=== PATIENT | female | born 1950 | race Caucasian/White ===

== ENCOUNTER 2016-08-22 19:33 | Emergency (ER) | payer OTHER ==
[~2016-08-22 19:33] MED LIST: ACID REDUCER150 MG PO; CLARITIN EYE OP; CRESTOR20 MG PO; DEPAKENE250 MG PO; DIAZEPAM5 MG PO; ESTRACE PV; FLONASE AL50 MCG/ACT IN; GUAIFENESIN AC PO; HYDROCODONE-APAP PO; KEPPRA500 MG PO; LISINOPRIL10 MG PO; LOPERAMIDE HCL2 MG PO; MORPHINE SULFAT15 M1 PO; NORVASC5 MG PO; ONDANSETRON ODT4 MG PO; PLAVIX75 MG PO; REGLAN10 MG PO; SEROQUEL25 MG PO; SIMVASTATIN20 MG PO; THEOPHYLLINE E300 MG PO; TRAZODONE HCL50 MG PO; VICODIN HP1 TA1 PO; ZOLOFT50 MG PO
--- NOTE | 2016-08-22 22:59 | DIAGNOSTIC IMAGING REPORT ---
PROCEDURE: CT ABDOMEN/PELVIS W/O CONTRAST INDICATION: ABDOMINAL PAIN TECHNIQUE: Axial CT images were obtained through the abdomen and pelvis without IV contrast. Coronal and sagittal reformations were created. The patient has an allergy to IV contrast. COMPARISON: None. FINDINGS: Emphysematous changes at the lung bases. Surgical clips in the expected location of the hepatic caudate lobe. Gallbladder surgically absent. Unenhanced appearance of adrenal glands, pancreas, spleen, and kidneys is normal. Focally ectatic mid abdominal aorta with peripheral calcification. There are no suspicious calcifications, retroperitoneal adenopathy or masses. The stomach, upper bowel loops, and mesentery appears normal. Intact anterior abdominal wall. No free fluid, or inflammation. The unenhanced appearance of the uterus, urinary bladder, pelvic vessels, and pelvic bowel loops is normal. Appendix not visible but no right lower quadrant inflammation. No suspicious calcifications, free fluid, or mass. Intact osseous structures with severe degenerative disc height loss and L5-S1. IMPRESSION: 1. No acute process. 2. Post cholecystectomy and focal hepatectomy. 3. Nonvisualization of the appendix but no adjacent inflammatory changes. 4. Discussed with Dr. Galicia in the emergency room. All CT scans at this facility use dose modulation, iterative reconstruction, and/or weight-based dosing when appropriate to reduce radiation dose to as low as reasonably achievable.
--- NOTE | 2016-08-22 23:05 | ED ORDER SUMMARY ---
..... Patient: RAVEN RBOLEDO OrderSheet [facility] VisitID: [id number] [place] [address] 66y, F Registration Date/Time: 08/22/2016 ORDER SHEET Weight: 45.3 kg (stated) Allergies: Acular, Aspirin, Bee stings, Citalopram, CONTRAST DYE, Darvon, Flexeril, Latex, Lipitor, Nicotine patch , Penicillins GENERAL ORDERS: CBC w Diff Urgent (19:40 08/22/2016 Kendy KINNEY) (Ack 19:46 AMcQuoid ER Tech1) (19:59 Jorgito R.N.) CMP Urgent (19:40 08/22/2016 Kendy KINNEY) (Ack 19:46 AMcQuoid ER Tech1) (19:59 Jorgito R.N.) UA-Culture if indicated Urgent (19:40 08/22/2016 Kendy KINNEY) (Ack 19:46 AMcQuoid ER Tech1) (20:15 Jorgito R.N.) Amylase Urgent (19:40 08/22/2016 Kendy KINNEY) (Ack 19:46 AMcQuoid ER Tech1) (19:59 Jorgito R.N.) Lipase Urgent (19:40 08/22/2016 Kendy KINNEY) (Ack 19:46 AMcQuoid ER Tech1) (19:59 Jorgito R.N.) Urine Drug Screen Urgent (19:40 08/22/2016 Kendy KINNEY) (Ack 19:46 AMcQuoid ER Tech1) (20:15 Jorgito R.N.) CT Abd/Pel wo Cont Urgent (20:55 08/22/2016 Kendy KINNEY) (Ack 21:02 AMcQuoid ER Tech1) (21:06 Jorgito R.N.) MEDICATION ORDERS: Phenergan IV 25 mg (HIGH ALERT MEDICATION, NOW) (22:18 08/22/2016 Adriana KINNEY) (Ack 22:20 Jorgito R.N.) (22:49 Jorgito R.N.) Bactrim DS PO (Tablet 800-160 mg) 1 tab (NOW) (23:02 08/22/2016 Adriana KINNEY) (Ack 23:07 HSoule) (23:38 HSoule) Metoprolol PO 25 mg (HIGH ALERT MEDICATION, NOW) (23:29 08/22/2016 Adriana KINNEY) (Ack 23:33 CBradalexi R.N.) (23:35 CBradburn R.N.) IV FLUIDS: IV NS : initial bolus 1000 mL (1000 mL/hr), then 150 mL/hr for 4h (NOW); Urgent (19:39 08/22/2016 Kendy KINNEY) (Ack 19:51 HSoule) (19:51 HSoule) Dilaudid IV 1 mg (HIGH ALERT MEDICATION, NOW) (22:12 08/22/2016 Adriana KINNEY) (Ack 22:19 CBradburn R.N.) (22:48 CBradburn R.N.) Zofran IV 8 mg (NOW) (22:12 08/22/2016 Adriana KINNEY) (Cancelled: Other22:18 Adriana KINNEY) Toradol IV 30 mg (NOW) (22:19 08/22/2016 Adriana KINNEY) (Ack 22:20 CBradburn R.N.) (22:49 CBradburn R.N.) ORDER SHEET NOTES: [Electronically signed by Marita uDnn (00:17 08/23/2016)] [Electronically signed by Aniyah Galicia MD (14:14 08/27/2016)] [Electronically locked/signed by Marita Dunn (00:17 08/23/2016)]
--- NOTE | 2016-08-22 23:05 | ED ORDER SUMMARY ---
..... Patient: RAVEN ROBLEDO OrderSheet [facility] VisitID: [id number] [place] [address] 66y, F Registration Date/Time: 08/22/2016 ORDER SHEET Weight: 45.3 kg (stated) Allergies: Acular, Aspirin, Bee stings, Citalopram, CONTRAST DYE, Darvon, Flexeril, Latex, Lipitor, Nicotine patch , Penicillins GENERAL ORDERS: CBC w Diff Urgent (19:40 08/22/2016 Kendy KINNEY) (Ack 19:46 AMcQuoid ER Tech1) (19:59 Jorgito R.N.) CMP Urgent (19:40 08/22/2016 Kendy KINNEY) (Ack 19:46 AMcQuoid ER Tech1) (19:59 Jorgito R.N.) UA-Culture if indicated Urgent (19:40 08/22/2016 Kendy KINNEY) (Ack 19:46 AMcQuoid ER Tech1) (20:15 Jorgito R.N.) Amylase Urgent (19:40 08/22/2016 Kendy KINNEY) (Ack 19:46 AMcQuoid ER Tech1) (19:59 Jorgito R.N.) Lipase Urgent (19:40 08/22/2016 Kendy KINNEY) (Ack 19:46 AMcQuoid ER Tech1) (19:59 Jorgito R.N.) Urine Drug Screen Urgent (19:40 08/22/2016 Kendy KINNEY) (Ack 19:46 AMcQuoid ER Tech1) (20:15 Jorgito R.N.) CT Abd/Pel wo Cont Urgent (20:55 08/22/2016 Kendy KINNEY) (Ack 21:02 AMcQuoid ER Tech1) (21:06 Jorgito R.N.) MEDICATION ORDERS: Phenergan IV 25 mg (HIGH ALERT MEDICATION, NOW) (22:18 08/22/2016 Adriana KINNEY) (Ack 22:20 Jorgito R.N.) (22:49 Jorgito R.N.) Bactrim DS PO (Tablet 800-160 mg) 1 tab (NOW) (23:02 08/22/2016 Adriana KINNEY) (Ack 23:07 HSoule) (23:38 HSoule) Metoprolol PO 25 mg (HIGH ALERT MEDICATION, NOW) (23:29 08/22/2016 Adriana KINNEY) (Ack 23:33 CBradalexi R.N.) (23:35 CBradburn R.N.) IV FLUIDS: IV NS : initial bolus 1000 mL (1000 mL/hr), then 150 mL/hr for 4h (NOW); Urgent (19:39 08/22/2016 Kendy KINNEY) (Ack 19:51 HSoule) (19:51 HSoule) Dilaudid IV 1 mg (HIGH ALERT MEDICATION, NOW) (22:12 08/22/2016 Adriana KINNEY) (Ack 22:19 CBradburn R.N.) (22:48 CBradburn R.N.) Zofran IV 8 mg (NOW) (22:12 08/22/2016 Adriana KINNEY) (Cancelled: Other22:18 Adriana KINNEY) Toradol IV 30 mg (NOW) (22:19 08/22/2016 Adriana KINNEY) (Ack 22:20 CBradburn R.N.) (22:49 CBradburn R.N.) ORDER SHEET NOTES: [Electronically signed by Marita Dunn (00:17 08/23/2016)] [Electronically signed by Aniyah Galicia MD (14:14 08/27/2016)] [Electronically locked/signed by Marita Dunn (00:17 08/23/2016)]
--- NOTE | 2016-08-22 23:05 | ED NURSING NOTES ---
Clinical Report - Nurses [facility] [address] [place] [address] 08/22/2016 19:34 [id number] Triage time 19:36 Aug 22 2016. Acuity: LEVEL 3. Chief Complaint: ABDOMINAL PAIN, NAUSEA, VOMITING and DIARRHEA. SEPSIS SCREEN: Sepsis Screen: negative. Negative (no infection suspected/documented). JAMES COMA SCORE: Brandon Coma Scale: 15- eyes open spontaneously (4); best verbal response- oriented x 4 (5); best motor response- obeys commands (6). --19:47 Marita Dunn 19:36 08/22/16. BP: 219/99. HR: 82. RR: 18. O2 saturation: 100% on room air. Temp: 97.8 F (oral). Pain level now: 01/08. --19:47 Marita Dunn. Weight: 45.3 kg stated. Height/Length: 63 inches Per Patient. BMI: 17.7. --19:43 Marita Dunn. Medications Clopidogrel Bisulfate Oral (Tablet 75 mg) 1 tablet, daily. Hydrocodone-Acetaminophen Oral 10 mg, as needed. Loperamide HCl Oral, as needed. Morphine Sulfate (Concentrate) Oral 15 mg, 2 x daily. SEROquel Oral 25 mg, at bedtime. Theophylline ER Oral (Tablet Extended Release 12 Hour 300 mg) 1/2 tablet, twice daily. TraZODone HCl Oral 50 mg, at bedtime. Zoloft Oral 50 mg, daily. --19:42 Marita Dunn LevETIRAcetam Oral. --19:43 Marita Dunn Advair HFA Inhalation. --19:43 Marita Dunn Simvastatin Oral. --19:43 Marita Dunn Diazepam Oral 5 mg, 3x a day. --19:46 Marita Dunn Estrace Vaginal. --19:46 Marita Dunn. Medication/allergy information source: the patient. --19:47 Marita Dunn. Allergies Acular. Aspirin. Definite Severe(swelling) Bee stings. Citalopram. CONTRAST DYE. Darvon. Flexeril. Latex. Lipitor. Nicotine patch . Penicillins. Definite Severe(swelling) --19:45 Marita Dunn. History Arrived by EMS. Historian: EMS and patient. Unaccompanied. Primary physician (falguni polanco). Onset. (2 days). ( Patient reports that she has extensive stomach problems. She states two days of nausea, vomiting and diarrhea. She believed she had a bug. She states then today she threw up pills she had taken six hours later. She states her "stomach has shut down". Patient reports 10/10 abdominal pain.). Last oral intake by patient was (Patient reports gatorade today but no food). 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 See EMS report. EMS treatment WELDING MACHINE OPERATOR ELECTRON BEAM verbally communicated and report reviewed. See report. Pre-hospital 12-lead EKG. MORPHINE 2 mg IVP given by EMS. BP: 225 / 105. HR: 80. O2 saturation: 98 % room air. PAST MEDICAL HX: Immunizations: status is unknown. The patient is post-menopausal. SOCIAL HX: Heavy tobacco smoker (cigarette)- 1 pack per day. History of drug use: marijuana. No alcohol use. No recent travel. No infectious disease exposure. No known contact with a sick individual. ABUSE ASSESSMENT: No report of abuse. FALL RISK ASSESSMENT: Fall risk assessment completed. No fall risk identified. NUTRITIONAL RISK ASSESSMENT: The nutritional risk assessment revealed no deficiencies. FUNCTIONAL ASSESSMENT: Functional assessment: no impairments noted. LEARNING NEEDS ASSESSMENT: The learning needs assessment revealed no barriers. SKIN INTEGRITY ASSESSMENT: Skin integrity risk assessment completed. No skin integrity risk identified. --19:47 Marita Dunn. PROBLEMS: Hypokalemia. Seizure. Cervical Radiculopathy. Hypomagnesemia. Palpitations. Vomiting. Hypertension. Diarrhea. Nausea. Abdominal Pain. L5 S1 ruptured. Herniated Disk. COPD - Chronic Obstructive Pulmonary Disease. Liver problems in 2004. --19:46 Marita Dunn. ADDITIONAL SURGERIES: Appendectomy. Cholecystectomy. Liver cyst removal. Shoulder Surgery. --19:46 Marita Dunn. Interventions ID band on patient. To treatment room. --19:47 Marita Dunn. 19:37 08/22/2016 Site #1 started prior to arrival by EMS via IV in the left antecubital space with an 20g angiocath, with aseptic technique and good blood return; one attempt. Blood drawn: rainbow set. Labeled in the presence of the patient and sent to the lab. Saline lock flushed with 10 mL saline. --19:37 Marita Dunn. PHYSICAL ASSESSMENT To room via stretcher. Patient gowned. GENERAL / NEURO / PSYCH: Alert. Oriented X 4. Appears in pain. HEENT: Mucous membranes are pink. RESPIRATORY: Respirations not labored. CVS: Normal sinus rhythm noted. GI / : Emesis noted. Has vomited once. Abdomen soft and nontender. Abdominal tenderness in the periumbilical area. SKIN: Skin is warm and dry. --19:48 Marita Dunn. NURSING PROGRESS NOTES slot router, pulse oximeter and NIBP monitor placed on patient; monitor alarms on. Patient gowned. Warming measures: blanket applied. Reassurance given to the patient. Two patient identifiers checked. Call light placed in reach. Side rails up x 1. Bed placed in lowest position. Brakes of bed on. Patient ready for evaluation- chart flagged and ED physician notified. --19:49 Marita Dnun ( Patient states, "where is the doctor, when will they come in?". Patient reassured that provider will come to bedside as soon as possible.). --19:50 Marita Dunn Patient ID band checked for patient name and birthdate: patient confirmed. Blood samples drawn from the left antecubital space peripheral IV site with Vacutainer by nurse ; labeled in presence of the patient and sent to lab: rainbow set. Initial blood discarded and additional blood sent to lab. Line flushed with 10 mL normal saline post blood draw. --19:50 aMrita Dunn 19:51 08/22/2016 Started bag #1 1000 mL IV Fluids IV NS (Saline); at 1000 mL/hr over 1 hour(s) via site #1. Allergies verified and confirmed 5 rights. IV patency established. IV site checked: no pain, redness, or swelling. IV flushed thoroughly pre- and post-medication administration (Started in route to hospital, 200 ml infused at time of arrival.). --19:51 Shaun Marita Patient ID band checked for patient name: patient confirmed. Instructions provided to collect clean catch urine and patient verbalized understanding urine collected with return of yellow-colored clear urine; sample sent to lab for urinalysis and drug screen. Specimen labeled in the presence of the patient. ( pt up to BSC, urine collected and pt back to bed. placed back on monitor, will continue to monitor). --20:16 Naz Perales R.N. 20:21 Patient given ice bag for abdomen and warm blanket per request. Male orthopedic shoe fitter at bedside. --20:22 McQuoid, Kyleigh, ER Tech1 The patient is calm and resting quietly. Overall patient status is improved. GI / : The patient reports abdominal pain is still present and currently moderate in severity. Abdomen soft. Bowel sounds within normal limits. --20:40 Naz Perales R.N. 20:30 08/22/16. BP: 197/84 taken on the right arm, while lying. HR: 74 (regular and normal rate). RR: 18 (regular and unlabored). O2 saturation: 97% on room air. Temp: deferred. Pain level now: 09/08. --20:40 Naz Perales R.N. Patient transported to [place] by stretcher with tech. --21:06 Marita Dunn 21:06 08/22/2016 IV Fluids IV NS Discontinued: bag #1 completed. Total amount infused: 1000 mL. IV patency established. IV site checked: no pain, redness, or swelling. IV flushed thoroughly. --21:06 Naz Perales R.N. Patient transported to [place] by stretcher with tech. --21:06 Naz Perales R.N. 22:41 08/22/16. O2 saturation: 90% on nasal cannula at 2 liters/minute. Additional comments: 88%, 2 L NC applied, Primary nurse notified. . --22:42 Marita Dunn 22:25 08/22/2016 Toradol IVP 30 mg given over 2 minute(s) via site #1. Allergies verified and confirmed 5 rights. IV patency established. IV site checked: no pain, redness, or swelling. IV flushed thoroughly pre- and post-medication administration. IVP given by RN. --22:49 Naz Perales R.N. 22:30 08/22/2016 PHENERGAN (Promethazine HCl) IVP 25 mg given over 2 minute(s) via site #1. Allergies verified and confirmed 5 rights. IV patency established. IV site checked: no pain, redness, or swelling. IV flushed thoroughly pre- and post-medication administration. IVP given by RN. --22:49 Naz Perales R.N. 22:33 08/22/2016 Dilaudid (HYDROmorphone HCl PF) IVP 1 mg given over 2 minute(s) via site #1. Allergies verified, confirmed 5 rights and sedative warning given to the patient. IV patency established. IV site checked: no pain, redness, or swelling. IV flushed thoroughly pre- and post-medication administration. IVP given by RN. --22:48 Naz Perales R.N. 23:32 08/22/2016 Metoprolol PO Tablets 25 mg given. Allergies verified and confirmed 5 rights. --23:35 Naz Perales R.N. 23:38 08/22/2016 Bactrim DS (Sulfamethoxazole-TMP DS) PO Tablets 1 tab given. Allergies verified and confirmed 5 rights. --23:38 Marita Dunn. DISPOSITION / DISCHARGE 23:30 08/22/16. BP: 146/86. HR: 75. RR: 20. O2 saturation: 99% on room air. Temp: 98.7 F (oral). Pain level now: 11/08. --00:16 Marita Dunn 23:25 08/22/2016 Site #1 removed upon discharge. Catheter intact. Bandaid applied. --00:16 Marita Dunn 23:30 08/22/16. Condition at departure: stable. The goals identified in the patient's plan of care were met. No learning barriers present. Discharge instructions provided and reviewed with the patient and spouse. Reviewed warnings (Do not drive while on sedative medicaitons). Reviewed medication(s) side effects, precautions, dosing and course information. Prescription(s) given to the patient. Reviewed need for increased fluid intake. Patient and spouse verbalized understanding. Written instructions provided in Korean. ( Follow up with your PCP in seven days if not better. Drink plenty of fluids and complete antibiotics as prescribed. Patient verbalized understanding and had no additional questions at this time.). The patient was discharged by the physician. She was discharged home and accompanied by spouse. She left the Emergency Department ambulatory and via private vehicle. Spouse driving. FALL RISK ASSESSMENT: Fall risk assessment completed. No fall risk identified. --00:16 Marita Dunn. Locked/Released at 08/23/2016 0:17 by Marita Dunn,
--- NOTE | 2016-08-22 23:05 | ED CLINICAL REPORT ---
Clinical Report - Physicians/Mid Levels [facility] [address] [place] [address] 08/22/2016 19:34 Patient: RAVEN ROBLEDO Time Seen: 19:39. Arrived- By private vehicle. Historian- patient. HISTORY OF PRESENT ILLNESS Chief Complaint: VOMITING and DIARRHEA. This started yesterday and is still present. It was abrupt in onset and has been constant and waxing/waning. No recent travel. She has had nausea, vomiting, diarrhea and severe abdominal pain. The pain is described as located in the upper abdomen. No black stools, bloody stools, constipation, flank pain or history of possible bad food exposure. No known contact with a sick individual or change in routine. Has not recently been camping or on antibiotics. The illness is described as severe. Similar symptoms previously: Occasionally. Recent medical care: Not recently seen/assessed. REVIEW OF SYSTEMS No fever, muscle aches, difficulty with urination, dark urine or headache. No dizziness, sore throat, cough, chest pain or difficulty breathing. No excessive urination, skin rash, jaundice, back pain or fainting episodes. No blurred vision. All systems otherwise negative, except as recorded above. PAST HISTORY Problems: Hypokalemia. Seizure. Cervical Radiculopathy. Hypomagnesemia. Palpitations. Vomiting. Hypertension. Diarrhea. Nausea. Abdominal Pain. L5 S1 ruptured. Herniated Disk. COPD - Chronic Obstructive Pulmonary Disease. Liver problems in 2004. Additional Surgeries: Appendectomy. Cholecystectomy. Liver cyst removal. Shoulder Surgery. Medications: Estrace Vaginal. Diazepam Oral 5 mg, 3x a day. Simvastatin Oral. Advair HFA Inhalation. LevETIRAcetam Oral. Clopidogrel Bisulfate Oral (Tablet 75 mg) 1 tablet, daily. Hydrocodone-Acetaminophen Oral 10 mg, as needed. Loperamide HCl Oral, as needed. Morphine Sulfate (Concentrate) Oral 15 mg, 2 x daily. SEROquel Oral 25 mg, at bedtime. Theophylline ER Oral (Tablet Extended Release 12 Hour 300 mg) 1/2 tablet, twice daily. TraZODone HCl Oral 50 mg, at bedtime. Zoloft Oral 50 mg, daily. Allergies: Acular. Aspirin. Definite Severe(swelling) Bee stings. Citalopram. CONTRAST DYE. Darvon. Flexeril. Latex. Lipitor. Nicotine patch . Penicillins. Definite Severe(swelling). SOCIAL HISTORY Heavy tobacco smoker (cigarette)- 1 pack per day. History of drug use: marijuana. ADDITIONAL NOTES The nursing notes have been reviewed. PHYSICAL EXAM Vital Signs: 08/22/2016 19:36 BP: 219/99. HR: 82. RR: 18. O2 saturation: 100%. Temp: 97.8 F. Pain level now: 01/08. Have been reviewed. Appearance: Alert. Eyes: Pupils equal, round and reactive to light. ENT: Pharynx normal. Neck: Normal inspection. Neck supple. CVS: Normal heart rate and rhythm. Respiratory: No respiratory distress. Decreased air movement. Abdomen: Soft. Severe tenderness in the upper abdomen. No organomegaly. No mass. Back: Normal inspection. Skin: Skin warm and dry. Extremities: No lower extremity edema. LABS, X-RAYS, AND EKG Laboratory Tests: UA-Culture if indicated: (ANDREW: 08/22/2016 20:15) ( MsgRcvd 08/22/2016 20:33) Final results Test Result Flag Units (Reference) URINE COLOR YELLOW URINE APPEARANCE SL CLOUDY URINE GLUCOSE TRACE (NEGATIVE) URINE BILIRUBIN NEGATIVE (NEGATIVE) URINE KETONE 1+ (NEGATIVE) URINE SPECIFIC GRAVITY 1.020 (1.010-1.030) URINE PH 7.0 (5.0-8.0) URINE PROTEIN 1+ (NEGATIVE) URINE UROBILINOGEN 0.2 EU/dL (0.2-1.0) URINE NITRITE NEGATIVE (NEGATIVE) URINE BLOOD 1+ (NEGATIVE) URINE LEUK ESTERASE POSITIVE (NEGATIVE) URINE RBC 3-5 rbc/hpf (0-1) URINE WBC 10-15 wbc/hpf (0-1) URINE EPITHELIAL CELLS 1-3 EPI/hpf (0-5) URINE BACTERIA FEW (1+) (NONE SEEN) URINE COMMENT CULTURE INDICATED URINE CULTURES ARE SET-UP BASED ON THE FOLLOWING CRITERIA:POSITIVE NITRITEPOSITIVE LEUKOCYTE ESTERASEGREATER THAN 10 WHITE BLOOD CELLSMODERATE (2+) OR GREATER BACTERIA CBC w Diff: (ANDREW: 08/22/2016 19:49) ( MsgRcvd 08/22/2016 20:02) Final results Test Result Flag Units (Reference) WHITE BLOOD COUNT 10.4 K/uL (4.5-11.5) RED BLOOD COUNT 5.45 H M/uL (4.00-5.20) HEMOGLOBIN 15.8 gm/dL (12.0-16.0) HEMATOCRIT 46.9 H % (36.0-46.0) MEAN CELL VOLUME 86 fL (80-100) MEAN CORPUSCULAR HGB 29 pg (26-34) MEAN CORPUSCULAR HGB CONC 34 g/dL (31-37) RED CELL DISTRIBUTION WIDTH 14.4 % (11.6-14.8) PLATELET COUNT 250 K/uL (150-400) NEUTROPHIL % 87.2 H % (50-75) LYMPH % 9.0 L % (25-40) MONO % 3.8 % (3-14) EOSINOPHIL % 0 % (0-4) BASOPHIL % 0 % (0-2) Urine Drug Screen: (ANDREW: 08/22/2016 20:15) ( MsgRcvd 08/22/2016 20:50) Final results Test Result Flag Units (Reference) AMPHETAMINE/METHAMPHETAMINE NEGATIVE (NEGATIVE) BARBITURATE NEGATIVE (NEGATIVE) BENZODIAZEPINE NEGATIVE (NEGATIVE) CANNABINOID POSITIVE H (NEGATIVE) COCAINE NEGATIVE (NEGATIVE) ECSTASY NEGATIVE (NEGATIVE) METHADONE NEGATIVE (NEGATIVE) OPIATE POSITIVE H (NEGATIVE) The urine drug screen is a qualitative screening test fordrug overdose and abuse. All screen results should beconsidered as presumptive.Drugs screened for are as follows:BenzodiazepinesCocaineAmphetamines/MetamphetaminesTHC (Tetrahydrocannabinol)OpiatesBarbituratesEcstasyMethadonePositive results are unconfirmed. For confirmation, notifythe lab for the specimen to be sent to the reference lab.All confirmations must be performed by a differentmethodology.The ingestion of natural herbal and plant productscontaining Ephedra/Ephedra metabolites can produce in urineone or more substances capable of cross reacting withamphetamine/methamphetamine immunoassays. These testsprovide a preliminary result only. A more specificalternative chemical method must be used to obtain aconfirmed analytical result. CMP: (ANDREW: 08/22/2016 19:49) ( MsgRcvd 08/22/2016 20:47) Final results Test Result Flag Units (Reference) GLUCOSE 159 H mg/dL (70-110) BUN 9 mg/dL (7-18) CREATININE 0.9 mg/dL (0.6-1.3) Estimated GFR >60 mL/min Estimated GFR- >60 mL/min Note: Persistent reduction over 3 months in eGFR<60 mL/min/1.73 m2 defines CKD. Patients with eGFR values>=60 mL/min/1.73 m2 may also have CKD if evidence ofpersistent proteinuria. Additional information may be foundat www.[email or web address].org. SODIUM 133 L mmol/L (136-145) POTASSIUM 3.4 L mmol/L (3.5-5.1) CHLORIDE 94 L mmol/L (98-107) CARBON DIOXIDE 22 mmol/L (21-32) CALCIUM 9.8 mg/dL (8.5-10.1) TOTAL PROTEIN 8.6 H g/dL (6.4-8.2) ALBUMIN 4.2 g/dL (3.3-5.0) BILIRUBIN, TOTAL 0.6 mg/dL (0.0-1.0) ALKALINE PHOSPHATASE 139 H U/L (46-116) AST (SGOT) 20 U/L (15-37) ALT (SGPT) 21 U/L (12-78) LIPASE 242 U/L (73-393) AMYLASE 52 U/L (25-115) . Pulse Oximetry: 08/22/2016 19:36 O2 saturation: 100%. (FIO2 - room air). Interpretation: normal. PROGRESS AND PROCEDURES Course of Care: 21:36 08/22/16. The case was discussed with Dr. Galicia change of shift. We reviewed the patient's history and physical examination findings and the results of her studies thus far. Dr. Galicia will follow-up on the results the patient's CT scan and will arrange an appropriate disposition for her. - MARCIANO Galicia note: Pt was signed out to me, pending abdominal CT scan. Pt was treated symptomatically with Dilaudid, Phenergan and Toradol, with improvement. Her work-up was unremarkable, other than for a UTI. She was treated with Bactrim for this. Pt also had not been able to take her blood pressure medication at home (lisinopril, which we did not have), so I gave her a dose of metoprolol, as her BP was running high. No emergent condition identified. Patient counseled in person regarding the patient's stable condition, test results, diagnosis and need for follow-up. Concerns were addressed. Old medical records reviewed. Disposition: Discharged. Condition: stable and improved. CLINICAL IMPRESSION Acute urinary tract infection with cystitis. INSTRUCTIONS Drink plenty of fluids. Warnings: SEDATIVE MEDICATION: You were given sedative medication during your visit. Do not drive or operate dangerous machinery for 6 hours. GENERAL WARNINGS: Return or contact your physician immediately if your condition worsens or changes unexpectedly, if not improving as expected, or if other problems arise. Your Current Medications: CONTINUE TAKING THE FOLLOWING MEDICATIONS: Advair HFA Inhalation. Clopidogrel Bisulfate Oral : Tablet 75 mg, 1 tablet daily. Diazepam Oral : 5 mg 3x a day. Estrace Vaginal. Hydrocodone-Acetaminophen Oral : 10 mg, prn. LevETIRAcetam Oral. Loperamide HCl Oral : prn. Morphine Sulfate (Concentrate) Oral : 15 mg 2 x daily. SEROquel Oral : 25 mg at bedtime. Simvastatin Oral. Theophylline ER Oral : Tablet Extended Release 12 Hour 300 mg, 1/2 tablet twice daily. TraZODone HCl Oral : 50 mg at bedtime. Zoloft Oral : 50 mg daily. Prescription Medications: Hydrocodone/APAP 5mg / 325mg: take 1-2 orally every 6 hours as needed for pain. Dispense ten (10). No refill. Zofran (orally disintegrating tablets) 4 mg: take 1-2 orally every 6 hours as needed for nausea. Dispense fifteen (15). No refill. Substitution is permissible. Trimethoprim-Sulfamethoxazole DS: take 1 tablet orally every 12 hours for 7 days. No refill. Follow-up: Follow up with your doctor in seven days if not better. Understanding of the discharge instructions verbalized by patient. (Electronically signed by Aniyah Galicia MD 08/27/2016 14:14)
--- NOTE | 2016-08-22 23:05 | ED NURSING NOTES ---
Clinical Report - Nurses [facility] [address] [place] [address] 08/22/2016 19:34 [id number] Triage time 19:36 Aug 22 2016. Acuity: LEVEL 3. Chief Complaint: ABDOMINAL PAIN, NAUSEA, VOMITING and DIARRHEA. SEPSIS SCREEN: Sepsis Screen: negative. Negative (no infection suspected/documented). JAMES COMA SCORE: [place] Coma Scale: 15- eyes open spontaneously (4); best verbal response- oriented x 4 (5); best motor response- obeys commands (6). --19:47 Marita Dunn 19:36 08/22/16. BP: 219/99. HR: 82. RR: 18. O2 saturation: 100% on room air. Temp: 97.8 F (oral). Pain level now: 01/08. --19:47 Marita Dunn. Weight: 45.3 kg stated. Height/Length: 63 inches Per Patient. BMI: 17.7. --19:43 Marita Dunn. Medications Clopidogrel Bisulfate Oral (Tablet 75 mg) 1 tablet, daily. Hydrocodone-Acetaminophen Oral 10 mg, as needed. Loperamide HCl Oral, as needed. Morphine Sulfate (Concentrate) Oral 15 mg, 2 x daily. SEROquel Oral 25 mg, at bedtime. Theophylline ER Oral (Tablet Extended Release 12 Hour 300 mg) 1/2 tablet, twice daily. TraZODone HCl Oral 50 mg, at bedtime. Zoloft Oral 50 mg, daily. --19:42 Marita Dunn LevETIRAcetam Oral. --19:43 Marita Dunn Advair HFA Inhalation. --19:43 Marita Dunn Simvastatin Oral. --19:43 Marita Dunn Diazepam Oral 5 mg, 3x a day. --19:46 Marita Dunn Estrace Vaginal. --19:46 Marita Dunn. Medication/allergy information source: the patient. --19:47 Marita Dunn. Allergies Acular. Aspirin. Definite Severe(swelling) Bee stings. Citalopram. CONTRAST DYE. Darvon. Flexeril. Latex. Lipitor. Nicotine patch . Penicillins. Definite Severe(swelling) --19:45 Marita Dunn. History Arrived by EMS. Historian: EMS and patient. Unaccompanied. Primary physician (falguni polanco). Onset. (2 days). ( Patient reports that she has extensive stomach problems. She states two days of nausea, vomiting and diarrhea. She believed she had a bug. She states then today she threw up pills she had taken six hours later. She states her "stomach has shut down". Patient reports 10/10 abdominal pain.). Last oral intake by patient was (Patient reports gatorade today but no food). Treatment LIFE SCIENCE TECHNICIAN: ONDANSETRON 8 mg IVP given by EMS. See EMS report. EMS treatment LIFE SCIENCE TECHNICIAN verbally communicated and report reviewed. See report. Pre-hospital 12-lead EKG. MORPHINE 2 mg IVP given by EMS. BP: 225 / 105. HR: 80. O2 saturation: 98 % room air. PAST MEDICAL HX: Immunizations: status is unknown. The patient is post-menopausal. SOCIAL HX: Heavy tobacco smoker (cigarette)- 1 pack per day. History of drug use: marijuana. No alcohol use. No recent travel. No infectious disease exposure. No known contact with a sick individual. ABUSE ASSESSMENT: No report of abuse. FALL RISK ASSESSMENT: Fall risk assessment completed. No fall risk identified. NUTRITIONAL RISK ASSESSMENT: The nutritional risk assessment revealed no deficiencies. FUNCTIONAL ASSESSMENT: Functional assessment: no impairments noted. LEARNING NEEDS ASSESSMENT: The learning needs assessment revealed no barriers. SKIN INTEGRITY ASSESSMENT: Skin integrity risk assessment completed. No skin integrity risk identified. --19:47 Marita Dunn. PROBLEMS: Hypokalemia. Seizure. Cervical Radiculopathy. Hypomagnesemia. Palpitations. Vomiting. Hypertension. Diarrhea. Nausea. Abdominal Pain. L5 S1 ruptured. Herniated Disk. COPD - Chronic Obstructive Pulmonary Disease. Liver problems in 2004. --19:46 Marita Dunn. ADDITIONAL SURGERIES: Appendectomy. Cholecystectomy. Liver cyst removal. Shoulder Surgery. --19:46 Marita Dunn. Interventions ID band on patient. To treatment room. --19:47 Marita Dunn. 19:37 08/22/2016 Site #1 started prior to arrival by EMS via IV in the left antecubital space with an 20g angiocath, with aseptic technique and good blood return; one attempt. Blood drawn: rainbow set. Labeled in the presence of the patient and sent to the lab. Saline lock flushed with 10 mL saline. --19:37 Marita Dunn. PHYSICAL ASSESSMENT To room via stretcher. Patient gowned. GENERAL / NEURO / PSYCH: Alert. Oriented X 4. Appears in pain. HEENT: Mucous membranes are pink. RESPIRATORY: Respirations not labored. CVS: Normal sinus rhythm noted. GI / : Emesis noted. Has vomited once. Abdomen soft and nontender. Abdominal tenderness in the periumbilical area. SKIN: Skin is warm and dry. --19:48 Marita Dunn. NURSING PROGRESS NOTES vehicle monitor technician, pulse oximeter and NIBP monitor placed on patient; monitor alarms on. Patient gowned. Warming measures: blanket applied. Reassurance given to the patient. Two patient identifiers checked. Call light placed in reach. Side rails up x 1. Bed placed in lowest position. Brakes of bed on. Patient ready for evaluation- chart flagged and ED physician notified. --19:49 Marita Dunn ( Patient states, "where is the doctor, when will they come in?". Patient reassured that provider will come to bedside as soon as possible.). --19:50 Marita Dunn Patient ID band checked for patient name and birthdate: patient confirmed. Blood samples drawn from the left antecubital space peripheral IV site with Vacutainer by nurse ; labeled in presence of the patient and sent to lab: rainbow set. Initial blood discarded and additional blood sent to lab. Line flushed with 10 mL normal saline post blood draw. --19:50 Marita Dunn 19:51 08/22/2016 Started bag #1 1000 mL IV Fluids IV NS (Saline); at 1000 mL/hr over 1 hour(s) via site #1. Allergies verified and confirmed 5 rights. IV patency established. IV site checked: no pain, redness, or swelling. IV flushed thoroughly pre- and post-medication administration (Started in route to hospital, 200 ml infused at time of arrival.). --19:51 Shaun Marita Patient ID band checked for patient name: patient confirmed. Instructions provided to collect clean catch urine and patient verbalized understanding urine collected with return of yellow-colored clear urine; sample sent to lab for urinalysis and drug screen. Specimen labeled in the presence of the patient. ( pt up to BSC, urine collected and pt back to bed. placed back on monitor, will continue to monitor). --20:16 Naz Perales R.N. 20:21 Patient given ice bag for abdomen and warm blanket per request. Male sales merchandiser at bedside. --20:22 McQuoid, Kyleigh, ER Tech1 The patient is calm and resting quietly. Overall patient status is improved. GI / : The patient reports abdominal pain is still present and currently moderate in severity. Abdomen soft. Bowel sounds within normal limits. --20:40 Naz Perales R.N. 20:30 08/22/16. BP: 197/84 taken on the right arm, while lying. HR: 74 (regular and normal rate). RR: 18 (regular and unlabored). O2 saturation: 97% on room air. Temp: deferred. Pain level now: 09/08. --20:40 Naz Perales R.N. Patient transported to [place] by stretcher with tech. --21:06 Marita Dunn 21:06 08/22/2016 IV Fluids IV NS Discontinued: bag #1 completed. Total amount infused: 1000 mL. IV patency established. IV site checked: no pain, redness, or swelling. IV flushed thoroughly. --21:06 Naz Perales R.N. Patient transported to [place] by stretcher with tech. --21:06 Naz Perales R.N. 22:41 08/22/16. O2 saturation: 90% on nasal cannula at 2 liters/minute. Additional comments: 88%, 2 L NC applied, Primary nurse notified. . --22:42 Marita Dunn 22:25 08/22/2016 Toradol IVP 30 mg given over 2 minute(s) via site #1. Allergies verified and confirmed 5 rights. IV patency established. IV site checked: no pain, redness, or swelling. IV flushed thoroughly pre- and post-medication administration. IVP given by RN. --22:49 Naz Perales R.N. 22:30 08/22/2016 PHENERGAN (Promethazine HCl) IVP 25 mg given over 2 minute(s) via site #1. Allergies verified and confirmed 5 rights. IV patency established. IV site checked: no pain, redness, or swelling. IV flushed thoroughly pre- and post-medication administration. IVP given by RN. --22:49 Naz Perales R.N. 22:33 08/22/2016 Dilaudid (HYDROmorphone HCl PF) IVP 1 mg given over 2 minute(s) via site #1. Allergies verified, confirmed 5 rights and sedative warning given to the patient. IV patency established. IV site checked: no pain, redness, or swelling. IV flushed thoroughly pre- and post-medication administration. IVP given by RN. --22:48 Naz Perales R.N. 23:32 08/22/2016 Metoprolol PO Tablets 25 mg given. Allergies verified and confirmed 5 rights. --23:35 Naz Perales R.N. 23:38 08/22/2016 Bactrim DS (Sulfamethoxazole-TMP DS) PO Tablets 1 tab given. Allergies verified and confirmed 5 rights. --23:38 Marita Dunn. DISPOSITION / DISCHARGE 23:30 08/22/16. BP: 146/86. HR: 75. RR: 20. O2 saturation: 99% on room air. Temp: 98.7 F (oral). Pain level now: 11/08. --00:16 Marita Dunn 23:25 08/22/2016 Site #1 removed upon discharge. Catheter intact. Bandaid applied. --00:16 Marita Dunn 23:30 08/22/16. Condition at departure: stable. The goals identified in the patient's plan of care were met. No learning barriers present. Discharge instructions provided and reviewed with the patient and spouse. Reviewed warnings (Do not drive while on sedative medicaitons). Reviewed medication(s) side effects, precautions, dosing and course information. Prescription(s) given to the patient. Reviewed need for increased fluid intake. Patient and spouse verbalized understanding. Written instructions provided in Swedish. ( Follow up with your PCP in seven days if not better. Drink plenty of fluids and complete antibiotics as prescribed. Patient verbalized understanding and had no additional questions at this time.). The patient was discharged by the physician. She was discharged home and accompanied by spouse. She left the Emergency Department ambulatory and via private vehicle. Spouse driving. FALL RISK ASSESSMENT: Fall risk assessment completed. No fall risk identified. --00:16 Marita Dunn. Locked/Released at 08/23/2016 0:17 by Marita Dunn,
--- NOTE | 2016-08-27 14:15 | ED MED RECONCILIATION SUMMARY ---
Patient: RAVEN ROBLEDO Medication Reconciliation Report [facility] VisitID: [id number] [place] [address] 66y, F Registration Date/Time: 08/22/2016 Weight: 45.3 kg Height/Length: 63 in. BMI: 17.7 ALLERGIES: Acular, Aspirin, Bee stings, Citalopram, CONTRAST DYE, Darvon, Flexeril, Latex, Lipitor, Nicotine patch , Penicillins The patient's Home Medications are listed below: CONTINUE TAKING THE FOLLOWING MEDICATIONS: Advair HFA Inhalation Clopidogrel Bisulfate Oral (75 mg) 1 tablet, daily Diazepam Oral 5 mg, 3x a day Estrace Vaginal Hydrocodone-Acetaminophen Oral 10 mg LevETIRAcetam Oral Loperamide HCl Oral Morphine Sulfate (Concentrate) Oral 15 mg, 2 x daily SEROquel Oral 25 mg, at bedtime Simvastatin Oral Theophylline ER Oral (300 mg) 1/2 tablet, twice daily TraZODone HCl Oral 50 mg, at bedtime Zoloft Oral 50 mg, daily The source(s) of the original Home Medication information: patient The following Medications were given to the patient in the Emergency Department: IV NS IV Fluids bolus 0, then 1000 mL/hr, administered: 08/22/2016 7:51:00 PM Dilaudid [IVP] IVP 1 mg, administered: 08/22/2016 10:33:00 PM PHENERGAN [IVP] IVP 25 mg, administered: 08/22/2016 10:30:00 PM Toradol [IVP] IVP 30 mg, administered: 08/22/2016 10:25:00 PM Metoprolol [PO] PO 25 mg, administered: 08/22/2016 11:32:00 PM Bactrim DS [PO] PO 1 tab, administered: 08/22/2016 11:38:00 PM The following Medications were prescribed to the patient: Hydrocodone/APAP 5mg / 325mg: take 1-2 orally every 6 hours as needed for pain. Dispense ten (10). No refill. -- Aniyah Galicia MD Zofran (orally disintegrating tablets) 4 mg: take 1-2 orally every 6 hours as needed for nausea. Dispense fifteen (15). No refill. Substitution is permissible. -- Aniyah Galicia MD Trimethoprim-Sulfamethoxazole DS: take 1 tablet orally every 12 hours for 7 days. No refill. -- Aniyah Galicia MD
--- NOTE | 2016-08-27 14:15 | ED MAR SUMMARY ---
..... Medication Administration Record [facility] [address] [place] [address] Patient: RAVEN ROBLEDO Visit ID: [id number] 66y, F Weight: 45.3 kg Height/Length: 63 in BMI: 17.7 ALLERGIES: Acular, Aspirin, Bee stings, Citalopram, CONTRAST DYE, Darvon, Flexeril, Latex, Lipitor, Nicotine patch , Penicillins Start 19:51 08/22/2016 Marita Dunn,, Stop 21:06 08/22/2016 Naz Perales R.N. Medication Administered: IV NS (SALINE), Dose: IV Fluids over 1 hour(s), Rate: 1000 mL/hr, Dispensed: 1000 mL bag, Site: #1 left AC. Medication Ordered: IV NS : initial bolus 1000 mL (1000 mL/hr), then 150 mL/hr for 4h (NOW); Urgent. Given 22:25 08/22/2016 Naz Perales R.N. Medication Administered: TORADOL [IVP], Dose: 30 mg IVP over 2 minute(s), Site: #1 left AC. Medication Ordered: Toradol IV 30 mg (NOW). Given 22:30 08/22/2016 Naz Perales R.N. Medication Administered: PHENERGAN [IVP] (PROMETHAZINE HCL), Dose: 25 mg IVP over 2 minute(s), Site: #1 left AC. Medication Ordered: Phenergan IV 25 mg (HIGH ALERT MEDICATION, NOW). Given 22:33 08/22/2016 Naz Perales R.N. Medication Administered: DILAUDID [IVP] (HYDROMORPHONE HCL PF), Dose: 1 mg IVP over 2 minute(s), Site: #1 left AC. Medication Ordered: Dilaudid IV 1 mg (HIGH ALERT MEDICATION, NOW). Given 23:32 08/22/2016 Naz Perales R.N. Medication Administered: METOPROLOL [PO], Dose: 25 mg Tablets PO. Medication Ordered: Metoprolol PO 25 mg (HIGH ALERT MEDICATION, NOW). Given 23:38 08/22/2016 Shaun, Marita, Medication Administered: BACTRIM DS [PO] (SULFAMETHOXAZOLE-TMP DS), Dose: 1 tab Tablets PO. Medication Ordered: Bactrim DS PO (Tablet 800-160 mg) 1 tab (NOW).
--- NOTE | 2016-08-27 14:15 | ED DISCHARGE INSTRUCTIONS ---
Patient: RAVEN ROBLEDO General Instructions [facility] VisitID: [id number] [place] [address] 66y, F Registration Date/Time: 08/22/2016 Acute urinary tract infection with cystitis. INSTRUCTIONS Drink plenty of fluids. Warnings: SEDATIVE MEDICATION: You were given sedative medication during your visit. Do not drive or operate dangerous machinery for 6 hours. GENERAL WARNINGS: Return or contact your physician immediately if your condition worsens or changes unexpectedly, if not improving as expected, or if other problems arise. Your Current Medications: CONTINUE TAKING THE FOLLOWING MEDICATIONS: Advair HFA Inhalation. Clopidogrel Bisulfate Oral : Tablet 75 mg, 1 tablet daily. Diazepam Oral : 5 mg 3x a day. Estrace Vaginal. Hydrocodone-Acetaminophen Oral : 10 mg, prn. LevETIRAcetam Oral. Loperamide HCl Oral : prn. Morphine Sulfate (Concentrate) Oral : 15 mg 2 x daily. SEROquel Oral : 25 mg at bedtime. Simvastatin Oral. Theophylline ER Oral : Tablet Extended Release 12 Hour 300 mg, 1/2 tablet twice daily. TraZODone HCl Oral : 50 mg at bedtime. Zoloft Oral : 50 mg daily. Prescription Medications: Hydrocodone/APAP 5mg / 325mg: take 1-2 orally every 6 hours as needed for pain. Dispense ten (10). No refill. Zofran (orally disintegrating tablets) 4 mg: take 1-2 orally every 6 hours as needed for nausea. Dispense fifteen (15). No refill. Substitution is permissible. Trimethoprim-Sulfamethoxazole DS: take 1 tablet orally every 12 hours for 7 days. No refill. Follow-up: Follow up with your doctor in seven days if not better. Understanding of the discharge instructions verbalized by patient. ADDITIONAL INFORMATION Bladder Infection,Female (Adult) A bladder infection ("cystitis" or "UTI") usually causes a constant urge to urinate and a burning when passing urine. Urine may be cloudy, smelly or dark. There may be pain in the lower abdomen. A bladder infection occurs when bacteria from the vaginal area enter the bladder opening (urethra). This can occur from sexual intercourse, wearing tight clothing, dehydration and other factors. Home Care: Drink lots of fluids (at least 6-8 glasses a day, unless you must restrict fluids for other medical reasons). This will force the medicine into your urinary system and flush the bacteria out of your body. Avoid sexual intercourse until your symptoms are gone. Avoid caffeine, alcohol and spicy foods. These can irritate the bladder. A bladder infection is treated with antibiotics. You may also be given Pyridium (generic = phenazopyridine) to reduce the burning sensation. This medicine will cause your urine to become a bright orange color. The orange urine may stain clothing. You may wear a pad or panty-liner to protect clothing. Preventing Future Infections: Always wipe from front to back after a bowel movement. Keep the genital area clean and dry. Drink plenty of fluids each day to avoid dehydration. Both sexual partners should wash before intercourse. Urinate right after intercourse to flush out the bladder. Wear cotton underwear and cotton-lined panty hose; avoid tight-fitting pants. If you are on control pills and are having frequent bladder infections, discuss with your doctor. Follow Up: Return to this facility or see your doctor if ALL symptoms are not gone after three days of treatment. Get Prompt Medical Attention if any of the following occur: Fever of 100.4F (38C) or higher, or as directed by your healthcare provider No improvement by the third day of treatment Increasing back or abdominal pain Repeated vomiting; unable to keep medicine down Weakness, dizziness or fainting Vaginal discharge Pain, redness or swelling in the labia (outer vaginal area) You have been given the following additional information: Bladder Infection, Female (Adult) (Electronically signed by Aniyah Galicia MD 08/27/2016 14:14)
--- NOTE | 2016-08-27 14:15 | ED MAR SUMMARY ---
..... Medication Administration Record [facility] [address] [facility] [facility] [place] [address] Patient: RAVEN ROBLEDO Visit ID: [id number] 66y, F Weight: 45.3 kg Height/Length: 63 in BMI: 17.7 ALLERGIES: Acular, Aspirin, Bee stings, Citalopram, CONTRAST DYE, Darvon, Flexeril, Latex, Lipitor, Nicotine patch , Penicillins Start 19:51 08/22/2016 Marita Dunn,, Stop 21:06 08/22/2016 Naz Perales R.N. Medication Administered: IV NS (SALINE), Dose: IV Fluids over 1 hour(s), Rate: 1000 mL/hr, Dispensed: 1000 mL bag, Site: #1 left AC. Medication Ordered: IV NS : initial bolus 1000 mL (1000 mL/hr), then 150 mL/hr for 4h (NOW); Urgent. Given 22:25 08/22/2016 Naz Perales R.N. Medication Administered: TORADOL [IVP], Dose: 30 mg IVP over 2 minute(s), Site: #1 left AC. Medication Ordered: Toradol IV 30 mg (NOW). Given 22:30 08/22/2016 Naz Perales R.N. Medication Administered: PHENERGAN [IVP] (PROMETHAZINE HCL), Dose: 25 mg IVP over 2 minute(s), Site: #1 left AC. Medication Ordered: Phenergan IV 25 mg (HIGH ALERT MEDICATION, NOW). Given 22:33 08/22/2016 Naz Perales R.N. Medication Administered: DILAUDID [IVP] (HYDROMORPHONE HCL PF), Dose: 1 mg IVP over 2 minute(s), Site: #1 left AC. Medication Ordered: Dilaudid IV 1 mg (HIGH ALERT MEDICATION, NOW). Given 23:32 08/22/2016 Naz Perales R.N. Medication Administered: METOPROLOL [PO], Dose: 25 mg Tablets PO. Medication Ordered: Metoprolol PO 25 mg (HIGH ALERT MEDICATION, NOW). Given 23:38 08/22/2016 Shaun, Marita, Medication Administered: BACTRIM DS [PO] (SULFAMETHOXAZOLE-TMP DS), Dose: 1 tab Tablets PO. Medication Ordered: Bactrim DS PO (Tablet 800-160 mg) 1 tab (NOW).
--- NOTE | 2016-08-27 14:15 | ED MED RECONCILIATION SUMMARY ---
Patient: RAVEN ROBLEDO Medication Reconciliation Report [facility] VisitID: [id number] [place] [address] 66y, F Registration Date/Time: 08/22/2016 Weight: 45.3 kg Height/Length: 63 in. BMI: 17.7 ALLERGIES: Acular, Aspirin, Bee stings, Citalopram, CONTRAST DYE, Darvon, Flexeril, Latex, Lipitor, Nicotine patch , Penicillins The patient's Home Medications are listed below: CONTINUE TAKING THE FOLLOWING MEDICATIONS: Advair HFA Inhalation Clopidogrel Bisulfate Oral (75 mg) 1 tablet, daily Diazepam Oral 5 mg, 3x a day Estrace Vaginal Hydrocodone-Acetaminophen Oral 10 mg LevETIRAcetam Oral Loperamide HCl Oral Morphine Sulfate (Concentrate) Oral 15 mg, 2 x daily SEROquel Oral 25 mg, at bedtime Simvastatin Oral Theophylline ER Oral (300 mg) 1/2 tablet, twice daily TraZODone HCl Oral 50 mg, at bedtime Zoloft Oral 50 mg, daily The source(s) of the original Home Medication information: patient The following Medications were given to the patient in the Emergency Department: IV NS IV Fluids bolus 0, then 1000 mL/hr, administered: 08/22/2016 7:51:00 PM Dilaudid [IVP] IVP 1 mg, administered: 08/22/2016 10:33:00 PM PHENERGAN [IVP] IVP 25 mg, administered: 08/22/2016 10:30:00 PM Toradol [IVP] IVP 30 mg, administered: 08/22/2016 10:25:00 PM Metoprolol [PO] PO 25 mg, administered: 08/22/2016 11:32:00 PM Bactrim DS [PO] PO 1 tab, administered: 08/22/2016 11:38:00 PM The following Medications were prescribed to the patient: Hydrocodone/APAP 5mg / 325mg: take 1-2 orally every 6 hours as needed for pain. Dispense ten (10). No refill. -- Aniyah Galicia MD Zofran (orally disintegrating tablets) 4 mg: take 1-2 orally every 6 hours as needed for nausea. Dispense fifteen (15). No refill. Substitution is permissible. -- Aniyah Galicia MD Trimethoprim-Sulfamethoxazole DS: take 1 tablet orally every 12 hours for 7 days. No refill. -- Aniyah Galicia MD
== END 2016-08-22 23:30 | disposition home or self-care (01) ==
LOC: ED SRH 19:33
DX: N30.00 Acute cystitis without hematuria (principal); J44.9 Chronic obstructive pulmonary disease, unspecified; I10 Essential (primary) hypertension; Z79.899 Other long term (current) drug therapy; Z79.51 Long term (current) use of inhaled steroids; Z79.891 Long term (current) use of opiate analgesic; Z88.6 Allergy status to analgesic agent; Z91.041 Radiographic dye allergy status; Z91.030 Bee allergy status; Z91.040 Latex allergy status
CPT/HCPCS: 90004; 90100; 90469; 92235; 92530; 92760; 92761; 92762; 92763; 92764; 92765; 92766; 92767; 95059